=== PATIENT | female | born 1975 | race Caucasian/White ===

== ENCOUNTER 2023-03-12 07:40 | Outpatient (CLI) | payer OTHER, SELFPAY ==
--- NOTE | 2023-03-12 08:00 | USCV_ITS ---
Myrna Main Age: 47 Gender: F : 1975 Exam Date: 03/12/2023 08:17 Ordering Phys: Elvia De Guzman APRN, APRN Technologist: Ashley Mcclellan [place] [facility] [place]: Chest pain BP: 140 / 80 HR: 67 Rhythm: Sinus Technical Quality: Adequate MEASUREMENTS (Male / Female) Normal Values 2D ECHO LV Diastolic Diameter PLAX 3.7 cm 4.2 - 5.9 / 3.9 - 5.3 cm LV Systolic Diameter PLAX 2.4 cm IVS Diastolic Thickness 1.7 cm 0.6 - 1.0 / 0.6 - 0.9 cm IVS Systolic Thickness 1.4 cm LVPW Diastolic Thickness 0.9 cm 0.6 - 1.0 / 0.6 - 0.9 cm LVPW Systolic Thickness 1.9 cm LVOT Diameter 2.0 cm LV Ejection Fraction 2D Teich 65.6 % LV Ejection Fraction MOD 2C 70.1 % LV Ejection Fraction 2C AL 72.0 % LA Diameter 2.1 cm LA Width 3.0 cm LA Height 5.7 cm RA Width 3.5 cm RA Height 2.9 cm Aorta at Sinotubular Diameter 2.9 cm IVC Diameter 0.7 cm M-MODE Aortic Annulus Diameter 2.8 cm LA Ao Ratio MM 0.6 MV E Point Septal Separation 0.3 cm DOPPLER AV Peak Velocity 155.0 cm/s LVOT Peak Velocity 127.0 cm/s AV Area Cont Eq vti 2.4 cm squared AV Area Cont Eq pk 2.6 cm squared MV Peak Velocity 103.0 cm/s MV Area PHT 3.3 cm squared Mitral E to A Ratio 1.2 MV E' Velocity 52.5 cm/s Mitral E to MV E' Ratio 9.3 Mitral E to LV E' Lateral Ratio 7.8 Mitral E to LV E' Septal Ratio 11.7 TR Peak Velocity 106.7 cm/s TR Peak Gradient 4.6 mmHg Right Atrial Pressure 5.0 mmHg Pulmonary Artery Systolic Pressu 9.6 mmHg PV Peak Velocity 118.0 cm/s RV Acceleration Time 0.1 s RV Ejection Time 0.3 s RV AcT/ET 0.4 FINDINGS Left Ventricle Left ventricle is normal in size. LV systolic function is normal with EF of 60 to 65%. No regional wall motion abnormalities are seen. Right Ventricle Normal normal in size and function Right Atrium Normal in size Left Atrium Normal in size Mitral Valve Structurally normal mitral valve. Mild mitral regurgitation. Aortic Valve Structurally normal aortic valve. No significant stenosis or regurgitation. Tricuspid Valve Mild tricuspid regurgitation. Insufficient TR jet to calculate RVSP. Pulmonic Valve Not well-visualized. Pericardium Normal Aorta Normal in size IVC Not well visualized CONCLUSIONS LV systolic function is normal with EF of 60 to 65%. Mild mitral regurgitation. Mild tricuspid regurgitation. No comparison studies are available Darren Shine MD (Electronically Signed) Final Date: 16 March 2023 14:53 S
== END 2023-03-12 07:41 | disposition home or self-care (01) ==
LOC: RAD 07:44
PROVIDERS: PCP Nurse Practitioner Family; Visit Provider Nurse Practitioner Family
DX: R07.9 Chest pain, unspecified (principal); I08.1 Rheumatic disorders of both mitral and tricuspid valves
CPT/HCPCS: 93306

== ENCOUNTER 2023-05-21 08:37 | Outpatient (CLI) | payer OTHER, SELFPAY ==
--- NOTE | 2023-05-21 08:43 | US_ITS ---
WS: [id number] ULTRASOUND SOFT TISSUES LEFT axilla. HISTORY: ENLARGED LYMPH NODES/AXILLARYLYMPHADENOPATHY COMPARISON: None available. TECHNIQUE: 2-D and color Doppler imaging is submitted. Simple, superficial complex cystic nodule in the LEFT axilla with mild peripheral increased vasculari ty. Nodule measures 0.7 x 0.8 x 0.5 cm. No tract extending superficial. This does not have the appear ance of the lymph node. There are no additional masses and no lymph nodes. IMPRESSION: Palpable nodule in the LEFT axilla is a complex cystic mass which is very superficial. Favor that thi s is a small sebaceous or epidermoid cyst. Does not have the appearance of a lymph node.
--- NOTE | 2023-05-21 08:43 | USCV_ITS ---
Myrna Main Age: 48 Gender: F : 1975 Exam Date: 05/21/2023 08:55 Ordering Phys: Elvia De Guzman APRN, APRN Technologist: TG [place] [facility] [place]: HTN Aortic Velocity @ SMA (cm/s) 109 RIGHT KIDNEY LEFT KIDNEY Velocity (cm/s) Velocity (cm/s) Sys/Chang Sys/Chang Resistive Index Resistive Index 87.8 / 26.1 0.70 Proximal Renal Artery 73.4 / 20.0 0.73 84.4 / 24.4 0.71 Mid Renal Artery 57.2 / 18.9 0.67 40.2 / 12.2 0.70 Distal Renal Artery 39.0 / 16.3 0.58 48.9 / 12.8 0.74 Hilar 40.0 / 17.5 0.56 84.4 / 24.4 0.68 Upper Pole 29.2 / 13.3 0.54 18.1 / 7.5 0.56 Mid Pole 18.5 / 8.3 0.55 28.5 / 9.4 0.25 Lower Pole 30.8 / 10.9 0.65 0.80 Renal Aortic Ratio 0.70 Accleration Index (cm/sec2) 0.08 Hilar 0.21 0.07 Upper Pole 0.06 0.70 Mid Pole 0.10 0.07 Lower Pole 0.17 11.4 Kidney Length (mm) 10.4 FINDINGS No comparison. No evidence of abdominal aortic aneurysm. There is no evidence of hemodynamically significant right renal artery stenosis. There is no evidence of hemodynamically significant left renal artery stenosis. CONCLUSIONS No sonographic evidence of hemodynamically significant renal artery stenosis bilaterally. Dr. Catrina Ring DO (Electronically Signed) Final Date: 21 May 2023 10:08 S
== END 2023-05-21 08:38 | disposition home or self-care (01) ==
LOC: RAD 08:37
PROVIDERS: PCP Nurse Practitioner Family; Visit Provider Nurse Practitioner Family
DX: I70.1 Atherosclerosis of renal artery (principal); R22.2 Localized swelling, mass and lump, trunk
CPT/HCPCS: 76882; 93975

== ENCOUNTER → 2023-11-13 14:18 | Outpatient (BNVA) | payer OTHER, SELFPAY | PROVIDERS: PCP Nurse Practitioner Family; Visit Provider Registered Nurse Neonatal Intensive Care | DX: J02.9 Acute pharyngitis, unspecified (principal) | CPT/HCPCS: 87880 ==

== ENCOUNTER 2024-02-12 09:47 | Outpatient (CLI) | payer OTHER, SELFPAY ==
--- NOTE | 2024-02-12 10:15 | MR_ITS ---
WS: [id number] MRI BRAIN WITH AND WITHOUT CONTRAST HISTORY: R29.2 - Abnormal reflex COMPARISON: None available. TECHNIQUE: Multiplanar imaging performed through the brain with MultiHance 19 ml's IV. No acute infarcts are seen. Herrera-white matter differentiation is well preserved. There are numerous c ystic areas in the LEFT brain that follows CSF on all sequences. There is are prominent perivascular spaces which may be congenital and are benign in appearance. There is no enhancement. No susceptibility artifacts or prior lacunar infarcts. Ventricles and extra-axial spaces are normal. Clivus and pituitary gland are normal. Visualized posterior fossa and brainstem are also normal. Postcontrast images are negative for masses or vascular malformations. Dural venous sinuses are normal. LEFT transverse sinus and jugular vein are asymmetrically enlarged c ompared to the RIGHT which is normal variation. Paranasal sinuses: Well aerated with no significant disease. Mastoid air cells: Normal. Calvarium and scalp: Normal. MR/MR head wo/w con [id number] IMPRESSION: 1. No acute infarct or hemorrhage. 2. Prominent perivascular spaces in the LEFT cerebrum. 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 3. No prior infarct. 4. No enhancing masses or vascular malformations.
--- NOTE | 2024-02-12 11:00 | MR_ITS ---
WS: [id number] MRI CERVICAL SPINE with and without contrast HISTORY: Dizziness and headaches. Brain fog. Right-sided numbness. COMPARISON: None available. Technique: Multiplanar, multisequence noncontrast imaging of the cervical spine. MultiHance 19 mL IV postcontrast imaging. Straightening of the normal cervical lordosis. Mild osteophytic ridging and narrowing of the disc spa lazara. Broad-based osteophyte along the posterior C5 and C6 vertebral bodies extends over a length of 2 .4 cm encroaching upon the ventral thecal sac. No signal abnormality within the cord. No acute fractu re or marrow edema. No discitis or osteomyelitis or abnormal enhancement. Craniocervical junction, C1 and C2 relationship, odontoid process and soft tissues are normal. C2-C3: Normal. C3-C4: Normal. C4-C5: Small central disc protrusion and mild annular disc bulging. Slightly greater disc osteophyte LEFT foramen causing mild LEFT foraminal stenosis. Mild bilateral facet arthritis, LEFT greater than RIGHT. C5-C6: Diffuse annular disc bulging with broad-based disc osteophyte complex asymmetrically extending to the LEFT. Effacement of ventral CSF. Osteophytic ridging extends into the foramina. Moderate cent ral with severe LEFT and moderate RIGHT foraminal stenosis due to disc osteophyte disease. Mild bilat eral facet joint arthropathy. C6-C7: Osteophytic ridging with broad-based central disc protrusion contacting the cervical cord and effacing CSF. Severe central and bilateral foraminal stenosis, RIGHT greater than LEFT. Bilateral fac et arthritis. C7-T1: Normal. Paraspinal soft tissue are normal. MR/MR cervical spine wo/w [id number] IMPRESSION: 1. C5-6: Broad-based disc osteophyte complex asymmetric to the LEFT. Effacemen t of CSF. Moderate central with severe LEFT and moderate RIGHT foraminal stenos is due to disc and osteophyte disease. 2. C6-7: Broad-based disc osteophyte complex effacing CSF and contacting the c ervical cord. Severe central with bilateral foraminal stenosis, RIGHT greater t corral LEFT. 3. No cord myelomalacia. 4. No discitis or osteomyelitis. 5. C4-5: Small central disc protrusion. Mild LEFT foraminal stenosis.
[2024-02-12] MEDS: gadobenate dimeglumine 5 mL vial IV (11:30)
== END 2024-02-12 09:48 | disposition home or self-care (01) ==
LOC: RAD 09:49
PROVIDERS: PCP Nurse Practitioner Family; Visit Provider Specialist
DX: M50.20 Other cervical disc displacement, unspecified cervical region (principal); M99.61 Osseous and subluxation stenosis of intervertebral foramina of cervical region; M50.322 Other cervical disc degeneration at C5-C6 level; M47.892 Other spondylosis, cervical region; R29.2 Abnormal reflex; R51.9 Headache, unspecified; R94.02 Abnormal brain scan
CPT/HCPCS: 70553; 72156